=== PATIENT | male | born 1965 | race Caucasian/White ===

== ENCOUNTER 2017-02-19 05:26 | Outpatient (CLI) | payer MEDICARE ==
[~2017-02-19] VITALS: Ht 172.7 cm; Wt 102.3 kg
[~2017-02-19 05:26] MED LIST: ALDACTONE25 MG PO; ASPIRIN81 MG PO; COREG25 MG PO; LASIX40 MG PO; NORVASC5 MG PO
[2017-02-19 06:31] LABS: BASOPHILS 0.5 % (0-2); EOSINOPHILS 2.5 % (0-7); HEMOGLOBIN 14.1 g/dL (13.5-17.5); IMMATURE GRANULOCYTES 0.1 % (0-5); LYMPHOCYTES 19.3 % (15-50); MCH 33.7 pg (26.0-34.0); MCHC 33.6 g/dL (31.0-37.0); MCV 100.5 fL (80.0-100.0); MEAN PLATELET VOLUME 10.3 fL (7.4-10.4); MONOCYTES 6.8 % (2-11); NEUTROPHILS 70.8 % (40-80); PLATELET COUNT 190 10x3/uL (130-400); RBC 4.18 10x6/uL (4.20-6.10); WBC 8.3 10x3/uL (4.8-10.8)
[2017-02-19 06:39] LABS: ANION GAP 18.2 mmol/L (8-16); CALCIUM 8.9 mg/dL (8.5-10.1); POTASSIUM - SERUM 4.2 mmol/L (3.5-5.1)
[2017-02-19 06:47] LABS: INR 0.93 (0.85-1.17)
[2017-02-19 06:59] LABS: APTT 35.6 SECONDS (22.8-39.4)
[2017-02-19 07:25] VITALS: BP 142/78; Ht 172.7 cm; Wt 102.3 kg
--- NOTE | 2017-02-19 10:40 | NUR ---
[id number] XAVIER CALLED AND INFOROMED THAT PROCEDURE WAS CANCEL
== END 2017-02-19 09:11 | disposition home or self-care (01) ==
LOC: D.OPS 05:26 → D.RAD 08:00 → D.OPS 08:00
PROVIDERS: Internal Medicine
DX: R16.1 Splenomegaly, not elsewhere classified (principal); N62 Hypertrophy of breast; Z95.1 Presence of aortocoronary bypass graft; Z01.812 Encounter for preprocedural laboratory examination